=== PATIENT | female | born 1990 | race Caucasian/White ===

== ENCOUNTER 2018-04-14 20:54 | Emergency (ER) | payer SELFPAY | END 2018-04-14 21:13 | disposition left against medical advice (07) | LOC: MADERS 20:54 | DX: Z53.21 Procedure and treatment not carried out due to patient leaving prior to being seen by health care provider (principal) ==

== ENCOUNTER 2018-06-28 00:26 | Emergency (ER) | payer SELFPAY ==
[2018-06-28] MEDS ORDERED: Ondansetron ODT 4 MG TAB ONE (01:02)
[2018-06-28] MEDS ORDERED: Acetaminophen 500 MG TAB ONE (01:02)
[2018-06-28 01:14] LABS: Bilirubin Negative (Negative); Blood, Urine Negative (Negative); Clarity Clear (Clear); Glucose, Urine (Dipstick) Negative (Negative); Leukocyte Trace (Negative); Nitrite Negative (Negative); Protein, Urine (Dipstick) 30 mg/dL (Neg-Trace); Urobilinogen 0.2 mg/dL (0.2-1.0); pH, Urine 5.5 (5.0-9.0)
[2018-06-28 01:15] LABS: #Basophils 0.1 thou/uL (0.0-0.2); #Lymphocytes 1.6 thou/uL (1.20-3.40); #Monocytes 0.5 thou/uL (0.11-0.59); #Neutrophils 11.4 thou/uL (1.40-6.50); %Basophils 0.6 % (0.0-1.0); %Eosinophils 0.3 % (0.0-10.0); %Lymphocytes 11.7 % (21.0-51.0); %Monocytes 3.7 % (0.0-10.0); %Neutrophils 83.8 % (42.0-75.0); Hemoglobin 12.3 g/dL (12.0-16.0); Mean Corpuscular HGB CONC 33.5 g/dL (32.0-36.0); Mean Corpuscular Hemoglobin 27.1 pg (27.0-31.0); Mean Corpuscular Volume 80.9 fL (78.0-98.0); Mean Platelet Volume 8.1 fL (7.4-10.4); Platelet Count 214 thou/uL (130-400); RBC Distribution Width 12.4 % (11.5-14.5); Red Blood Cell (RBC) Count 4.54 mill/uL (4.20-5.40); White Blood Cell (WBC) Count 13.6 thou/uL (4.8-10.8)
[2018-06-28 01:19] LABS: Pregnancy Test - Urine (BHCG) Negative (Negative); Pregu Control Background? CLEAR/WHITE (CLR/WHITE); Pregu Control Bar Appear? YES (CONTROL BAR); Specific Gravity 1.029 (1.002-1.036); Specific Gravity, Urine 1.029 (1.002-1.036)
[2018-06-28 01:22] LABS: THC/Cannabinoid Screen Detected (NotDetected)
[2018-06-28 01:23] LABS: Amphetamine Detected (NotDetected); Bacteria/HPF 3+ HPF (None Seen); Barbiturates Screen Not Detected (NotDetected); Benzodiazepine Screen Not Detected (NotDetected); Cocaine Metabolite Screen Not Detected (NotDetected); Medtox Control Line Valid? VALID (VALID); Methadone Not Detected (NotDetected); Methamphetamine Detected (NotDetected); Opiate Screen Not Detected (NotDetected); Oxycodone Screen Not Detected (NotDetected); Phencyclidine (PCP) Not Detected (NotDetected); RBC/HPF 0-3 HPF (0-3); Tricyclic Screen Not Detected (NotDetected)
[2018-06-28 01:29] LABS: ALT (SGPT) 14 U/L (8-55); AST (SGOT) 13 U/L (5-34); Albumin 4.1 g/dL (3.5-5.0); Alkaline Phosphatase 84 U/L (40-150); Anion Gap 15 mmol/L (10-20); BUN (Urea Nitrogen) 14 mg/dL (7.0-18.7); Bilirubin, Total 0.3 mg/dL (0.2-1.2); Calc. Creatinine Clearance 0 mL/min (70-130); Calcium 9.5 mg/dL (7.8-10.44); Carbon Dioxide 23 mmol/L (22-29); Chloride 103 mmol/L (98-107); Estimated GFR-MDRD 57; Globulin 3.9 g/dL (2.4-3.5); Glucose 103 mg/dL (70-105); Potassium 3.2 mmol/L (3.5-5.1); Sodium 138 mmol/L (136-145)
[2018-06-28] MEDS ORDERED: Sodium Chloride 0.9% 1,000 ML BAG ONE (06:39)
--- NOTE | 2018-06-28 08:36 | CT ---
PRELIMINARY REPORT/[facility]/EMERGENTY AFTER-HOURS PROCEDURE CT Abdomen and Pelvis With Intravenous Contrast EXAM DATE/TIME: 06/28/2018 3:01 AM CLINICAL HISTORY: 27 years old, female; Pain; Abdominal pain; Localized; Lower; Patient HX: PT complaining of lower abd omen pain, nausea TECHNIQUE: Axial computed tomography images of the abdomen and pelvis with intravenous contrast. All CT scans at this facility use at least one of these dose optimization techniques: automated expos ure control; mA and/or kV adjustment per patient size (includes targeted exams where dose is matched to clinical indication); or iterative reconstruction. CONTRAST: 96 ml of ISOVUE 370 administered intravenously. COMPARISON: No relevant prior studies available. FINDINGS: Lower thorax: No acute findings. ABDOMEN: Liver: Focal fatty infiltration about the falciform ligament fissure. No mass. Gallbladder and bile ducts: No calcified stones. No ductal dilation. Pancreas: Normal. No ductal dilation. Spleen: Normal. No splenomegaly. Adrenals: Normal. No mass. Kidneys and ureters: Normal. No hydronephrosis. Stomach and bowel: There is moderate colonic fecal retention. Appendix: No evidence of appendicitis. PELVIS: Bladder: Unremarkable as visualized. Reproductive: Unremarkable as visualized. ABDOMEN and PELVIS: Intraperitoneal space: 3.5 x 3.0 cm right and 3.7 x 2.2 cm left adnexal cysts with small volume free pelvic fluid. Bones/joints: No acute fracture. No dislocation. Soft tissues: Unremarkable. Vasculature: Normal. No abdominal aortic aneurysm. Lymph nodes: Normal. No enlarged lymph nodes. IMPRESSION: Bilateral adnexal cysts with small volume free pelvic fluid. Consider pelvic US correlation. Fecal retention. Normal appendix. Thank you for allowing us to participate in the care of your patient. Dictated and Authenticated by: Logan Briggs MD 06/28/2018 3:55 AM Central Time ([place] & [place]) FINAL REPORT CT ABDOMEN AND PELVIS WITH IV CONTRAST: Date: 06/28/18 FINDINGS/IMPRESSION: I agree with the preliminary report given by Pete. POS: OFF
== END 2018-06-28 04:18 | disposition home or self-care (01) ==
LOC: MADERS 00:26
DX: N83.201 Unspecified ovarian cyst, right side (principal); N83.202 Unspecified ovarian cyst, left side; F19.10 Other psychoactive substance abuse, uncomplicated; F31.9 Bipolar disorder, unspecified; F17.210 Nicotine dependence, cigarettes, uncomplicated
CPT/HCPCS: 36415; 74177; 80053; 80306; 81003; 81015; 81025; 85025; 87086; 96360; 99406; Q0162

== ENCOUNTER 2019-06-28 18:19 | Emergency (ER) | payer SELFPAY ==
[2019-06-28] MEDS ORDERED: Lidocaine 2% 20 ml MDV ONE (18:50)
[2019-06-28] MEDS ORDERED: Sulfameth/Trimethoprim DS 800-160mg TAB ONE (18:50)
== END 2019-06-28 19:30 | disposition home or self-care (01) ==
LOC: MADERS 18:19
DX: L02.31 Cutaneous abscess of buttock (principal); L73.2 Hidradenitis suppurativa; Z71.6 Tobacco abuse counseling; F31.9 Bipolar disorder, unspecified; F17.210 Nicotine dependence, cigarettes, uncomplicated
CPT/HCPCS: 10060; 99406; J2001

== ENCOUNTER 2019-06-30 19:16 | Emergency (ER) | payer SELFPAY | END 2019-06-30 20:14 | disposition home or self-care (01) | LOC: MADERS 19:16 | DX: Z48.01 Encounter for change or removal of surgical wound dressing (principal); F31.9 Bipolar disorder, unspecified; F17.210 Nicotine dependence, cigarettes, uncomplicated | CPT/HCPCS: 99282 ==

== ENCOUNTER 2020-11-06 00:45 | Emergency (ER) | payer OTHER, SELFPAY ==
[2020-11-06 23:55] LABS: SARS-CoV-2 MS2 Positive; SARS-CoV-2 N Gene Negative; SARS-CoV-2 S Gene Negative; SARS-CoV-2 by NAA Not Detected (NotDetected); SARS-CoV-2 orf1ab Negative
== END 2020-11-06 00:57 ==
LOC: MADERS 00:45
DX: R05 Cough (principal); Z20.822 Contact with and (suspected) exposure to COVID-19; F17.210 Nicotine dependence, cigarettes, uncomplicated
CPT/HCPCS: 87635; U0003

== ENCOUNTER 2021-04-01 01:29 | Emergency (ER) | payer SELFPAY | END 2021-04-01 01:53 | disposition home or self-care (01) | LOC: MADERS 01:29 | DX: S01.112A Laceration without foreign body of left eyelid and periocular area, initial encounter (principal); F17.210 Nicotine dependence, cigarettes, uncomplicated; W01.0XXA Fall on same level from slipping, tripping and stumbling without subsequent striking against object, initial encounter | CPT/HCPCS: 12001 ==

== ENCOUNTER 2021-07-19 13:09 | Emergency (ER) | payer SELFPAY ==
[2021-07-19] MEDS ORDERED: Acetaminophen 500 MG TAB ONE (14:09)
[2021-07-20 07:58] LABS: SARS-CoV-2 PCR by NAA DETECTED (NotDetected)
== END 2021-07-19 14:33 | disposition home or self-care (01) ==
LOC: MADERS 13:09
DX: U07.1 COVID-19 (principal); F17.210 Nicotine dependence, cigarettes, uncomplicated
CPT/HCPCS: 99283; U0003; U0005

== ENCOUNTER 2021-08-28 23:16 | Emergency (ER) | payer SELFPAY ==
[2021-08-28] MEDS ORDERED: Bupivacaine HCl 0.5%/Epinephrine 1:200,000/PF 30 ml Vial ONE (23:35)
[2021-08-28] MEDS ORDERED: Lidocaine 1% 20 ML MDV ONE (23:35)
== END 2021-08-29 00:15 | disposition home or self-care (01) ==
LOC: MADERS 23:16
DX: S61.411A Laceration without foreign body of right hand, initial encounter (principal); K08.89 Other specified disorders of teeth and supporting structures; F17.210 Nicotine dependence, cigarettes, uncomplicated; X58.XXXA Exposure to other specified factors, initial encounter
CPT/HCPCS: 12001; 64400

== ENCOUNTER 2022-02-18 16:29 | Emergency (ER) | payer SELFPAY | END 2022-02-18 16:56 | disposition home or self-care (01) | LOC: MADERS 16:29 | DX: K04.7 Periapical abscess without sinus (principal); K02.9 Dental caries, unspecified | CPT/HCPCS: 99282 ==